=== PATIENT | female | born 2000 | race Caucasian/White ===

== ENCOUNTER 2021-02-17 19:01 | Emergency (ER) | payer OTHER ==
[~2021-02-17 19:01] MED LIST: IBUPROFEN600 MG PO; LODINE CAP 300300 MG PO; MACROBID 100 M100 MG PO; NORFLEX 100 MG100 MG PO; PEPCID20 MG PO; PHENERGAN 25 MG25 M1 PO; PYRIDIUM100 MG PO; ZOFRAN ODT 4 MG4 MG PO
[2021-02-17] MEDS ORDERED: AMOXICILLIN500 M1 PO ×2 (19:46→19:50)
== END 2021-02-17 20:16 | disposition home or self-care (01) ==
LOC: ER1 19:01
DX: S30.860A Insect bite (nonvenomous) of lower back and pelvis, initial encounter (principal); Z23 Encounter for immunization; W57.XXXA Bitten or stung by nonvenomous insect and other nonvenomous arthropods, initial encounter
CPT/HCPCS: 90471; 90715; 99281

== ENCOUNTER 2021-06-14 22:13 | Emergency (ER) | payer OTHER ==
[~2021-06-14 22:13] MED LIST changes: +AMOXICILLIN500 M1 PO
[2021-06-15] MEDS ORDERED: PHENERGAN 25 MG25 M1 PO (05:59)
== END 2021-06-15 | disposition left against medical advice (07) ==
LOC: ER1 22:13
DX: Z53.21 Procedure and treatment not carried out due to patient leaving prior to being seen by health care provider (principal)

== ENCOUNTER 2021-06-15 01:00 | Emergency (ER) | payer OTHER ==
[2021-06-15] MEDS ORDERED: PHENERGAN 25 MG25 M1 PO (05:59)
== END 2021-06-15 06:23 | disposition home or self-care (01) ==
LOC: ER1 01:00
DX: O99.512 Diseases of the respiratory system complicating pregnancy, second trimester (principal); J02.9 Acute pharyngitis, unspecified; Z3A.26 26 weeks gestation of pregnancy; Z20.822 Contact with and (suspected) exposure to COVID-19
CPT/HCPCS: 87081; 87880; 99283; U0002

== ENCOUNTER 2021-06-17 01:55 | Outpatient (CLI) | payer OTHER | END 2021-06-17 03:23 | disposition home or self-care (01) | LOC: GENOP 01:55 | DX: O36.8120 Decreased fetal movements, second trimester, not applicable or unspecified (principal); O99.891 Other specified diseases and conditions complicating pregnancy; R10.2 Pelvic and perineal pain; Z3A.26 26 weeks gestation of pregnancy | CPT/HCPCS: 81001; G0463 ==

== ENCOUNTER 2021-07-28 21:04 | Outpatient (CLI) | payer OTHER | END 2021-07-28 22:24 | disposition home or self-care (01) | LOC: GENOP 21:04 | DX: O26.899 Other specified pregnancy related conditions, unspecified trimester (principal); R51.9 Headache, unspecified; R10.2 Pelvic and perineal pain; R20.0 Anesthesia of skin; H53.8 Other visual disturbances; Z3A.00 Weeks of gestation of pregnancy not specified | CPT/HCPCS: 81001; G0463 ==

== ENCOUNTER 2021-08-28 07:04 | Outpatient (CLI) | payer OTHER | END 2021-08-28 09:35 | disposition home or self-care (01) | LOC: GENOP 07:04 | DX: O47.1 False labor at or after 37 completed weeks of gestation (principal); Z3A.37 37 weeks gestation of pregnancy | CPT/HCPCS: 81001; G0463 ==

== ENCOUNTER 2021-08-30 14:46 | Outpatient (CLI) | payer OTHER | END 2021-08-30 17:07 | disposition home or self-care (01) | LOC: GENOP 14:46 | DX: O36.8330 Maternal care for abnormalities of the fetal heart rate or rhythm, third trimester, not applicable or unspecified (principal); Z3A.37 37 weeks gestation of pregnancy; O24.419 Gestational diabetes mellitus in pregnancy, unspecified control | CPT/HCPCS: 59025 ==

== ENCOUNTER 2021-09-03 16:26 | Inpatient (IN) | payer OTHER ==
[~2021-09-03] VITALS: Ht 162.6 cm; Wt 101.2 kg
[2021-09-03 17:21] LABS: HEMOGLOBIN 12.4 gm/dl (12.3-15.3); RED BLOOD COUNT 4.18 M/UL (4.00-5.10); WHITE BLOOD COUNT 7.9 K/UL (4.5-11.0)
[2021-09-04] MEDS ORDERED: DOCUSATE SODIU100 MG PO (18:24)
[2021-09-04] MEDS ORDERED: IBUPROFEN600 MG PO (18:24)
== END 2021-09-06 12:18 | disposition home or self-care (01) | DRG 807 ==
LOC: GENOP 16:26 → OB 16:49
PROVIDERS: Obstetrics & Gynecology; ADMIT Obstetrics & Gynecology
PROC: 0U7C7ZZ Dilation of Cervix, Via Natural or Artificial Opening (ICD-10-PCS; 2021-09-03)
PROC: 4A1HXCZ Monitoring of Products of Conception, Cardiac Rate, External Approach (ICD-10-PCS; 2021-09-03)
PROC: 10E0XZZ Delivery of Products of Conception, External Approach (ICD-10-PCS; principal; 2021-09-04)
PROC: 10907ZC Drainage of Amniotic Fluid, Therapeutic from Products of Conception, Via Natural or Artificial Opening (ICD-10-PCS; 2021-09-04)
PROC: 3E033VJ Introduction of Other Hormone into Peripheral Vein, Percutaneous Approach (ICD-10-PCS; 2021-09-04)
PROC: 0HQ9XZZ Repair Perineum Skin, External Approach (ICD-10-PCS; 2021-09-04)
DX: O24.420 Gestational diabetes mellitus in childbirth, diet controlled (principal); Z37.0 Single live birth; Z3A.38 38 weeks gestation of pregnancy; Z20.822 Contact with and (suspected) exposure to COVID-19; O70.0 First degree perineal laceration during delivery
CPT/HCPCS: 36415; 81001; 82800; 82962; 85014; 85018; 85025; 90707; 90715; J2405; J2590

== ENCOUNTER 2021-11-14 00:20 | Emergency (ER) | payer OTHER ==
[~2021-11-14 00:20] MED LIST changes: +DOCUSATE SODIU100 MG PO
[2021-11-14 01:44] LABS: HEMOGLOBIN 12.2 gm/dl (12.3-15.3); RED BLOOD COUNT 4.33 M/UL (4.00-5.10); WHITE BLOOD COUNT 8.5 K/UL (4.5-11.0)
[2021-11-14 01:53] LABS: BUN/CREATININE RATIO 12 (0-10)
== END 2021-11-14 03:32 | disposition home or self-care (01) ==
LOC: ER1 00:20
PROVIDERS: Family Medicine
DX: B34.9 Viral infection, unspecified (principal); Z20.822 Contact with and (suspected) exposure to COVID-19
CPT/HCPCS: 0240U; 80053; 81001; 82150; 82550; 82553; 83605; 83690; 83874; 84484; 84703; 85025; 96374; 96375; 99284; J1885; J2405